=== PATIENT | male | born 1985 | race American Indian/Alaskan Native ===

== ENCOUNTER 2020-07-30 05:51 | Emergency (ER) | payer MEDICAID, OTHER ==
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
[2020-07-30] MEDS ORDERED: Acetaminophen/oxyCODONE 325-5 MG Tab PO ONE (06:07)
[2020-07-30] MEDS ORDERED: Ibuprofen 600 MG Tab PO ONE (06:07)
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
== END 2020-07-30 08:13 | disposition home or self-care (01) ==
LOC: MW.ED 05:51
DX: S92.335A Nondisplaced fracture of third metatarsal bone, left foot, initial encounter for closed fracture (principal); S92.345A Nondisplaced fracture of fourth metatarsal bone, left foot, initial encounter for closed fracture; V19.9XXA Pedal cyclist (driver) (passenger) injured in unspecified traffic accident, initial encounter; Y93.I9 Activity, other involving external motion
CPT/HCPCS: 73630; 99284; A9270; 99283

== ENCOUNTER 2021-03-02 08:51 | Emergency (ER) | payer MEDICAID ==
[2021-03-02] MEDS ORDERED: Ketorolac 30 MG/ML SDV IM ONE (09:13)
[2021-03-02] MEDS ORDERED: Amoxicillin/Clavulanate K 875-125 MG Tab PO ONE (09:27)
== END 2021-03-02 10:40 | disposition left against medical advice (07) ==
LOC: MW.ED 08:51
DX: T43.591A Poisoning by other antipsychotics and neuroleptics, accidental (unintentional), initial encounter (principal); K08.89 Other specified disorders of teeth and supporting structures
CPT/HCPCS: 93005; 96372; 99284; A9270; J1885